=== PATIENT | female | born 1955 | race Caucasian/White ===

== ENCOUNTER 2017-06-17 14:08 | Emergency (ER) | payer BC ==
[2017-06-17 14:38] VITALS: BP 129/69
--- NOTE | 2017-06-17 15:05 | ER Document Report ---
ED General - General Chief Complaint: Toothache Stated Complaint: TOOTH PAIN Time Seen by Provider: 06/17/17 14:57 Mode of Arrival: Ambulatory Information source: Patient Notes: 62-year-old female history of extremely poor dentition presents with complaints of dental pain. Patient notes tooth #25 or 26 are bothering her she denies any fevers or chills denies any swelling of the face TRAVEL OUTSIDE OF THE [place] IN LAST 30 DAYS: No - HPI Onset: Just prior to arrival Onset/Duration: Persistent Quality of pain: Achy Severity: Mild Pain Level: 1 Associated symptoms: Other Exacerbated by: Denies Relieved by: Denies Similar symptoms previously: No Recently seen / treated by doctor: No - Related Data Allergies/Adverse Reactions: No Known Allergies Allergy (Verified 06/17/17 14:09) Past Medical History - Social History Smoking Status: Never Smoker Cigarette use (# per day): No Chew tobacco use (# tins/day): No Smoking Education Provided: No Family History: Reviewed & Not Pertinent Review of Systems - Review of Systems Notes: REVIEW OF SYSTEMS: CONSTITUTIONAL : Denies fever, chills, or sweats. Denies recent illness. EENT: Admits to dental pain CARDIOVASCULAR: Denies chest pain. Denies palpitations or racing or irregular heart beat. Denies ankle edema. RESPIRATORY: Denies cough, cold, or chest congestion. Denies shortness of breath, difficulty breathing, or wheezing. GASTROINTESTINAL: Denies abdominal pain or distention. Denies nausea, vomiting , or diarrhea. Denies blood in vomitus, stools, or per rectum. Denies black, tarry stools. Denies constipation. GENITOURINARY: Denies difficulty urinating, painful urination, burning, frequency, blood in urine, or discharge. FEMALE GENITOURINARY: Denies vaginal bleeding, heavy or abnormal periods, irregular periods. Denies vaginal discharge or odor. MUSCULOSKELETAL: Denies back or neck pain or stiffness. Denies joint pain or swelling. SKIN: Denies rash, lesions or sores. HEMATOLOGIC : Denies easy bruising or bleeding. LYMPHATIC: Denies swollen, enlarged glands. NEUROLOGICAL: Denies confusion or altered mental status. Denies passing out or loss of consciousness. Denies dizziness or lightheadedness. Denies headache. Denies weakness or paralysis or loss of use of either side. Denies problems with gait or speech. Denies sensory loss, numbness, or tingling. Denies seizures. PSYCHIATRIC: Denies anxiety or stress. Denies depression, suicidal ideation, or homicidal ideation. ALL OTHER SYSTEMS REVIEWED AND NEGATIVE. PHYSICAL EXAMINATION: GENERAL: Well-appearing, well-nourished and in no acute distress. HEAD: Atraumatic, normocephalic. EYES: Pupils equal round extraocular movements intact, conjunctiva are normal. ENT: Patient is pretty edentulous, she has 4 teeth, tooth #2526 noted to have caries fractured tender NECK: Normal range of motion LUNGS: No respiratory distress Musculoskeletal: Normal range of motion NEUROLOGICAL: Normal speech, normal gait. PSYCH: Normal mood, normal affect. SKIN: Warm, Dry, normal turgor, no rashes or lesions noted. Physical Exam - Vital signs Vitals: Temp Pulse Resp BP Pulse Ox 98.4 F 64 16 129/69 H 96 06/17/17 14:37 06/17/17 14:37 06/17/17 14:37 06/17/17 14:37 06/17/17 14:37 Course - Re-evaluation Re-evalutation: 06/17/17 15:17 Patient defers on a nerve block, I will start on antibiotics give her pain control and her follow-up with her own dentist next week per previous appointment After performing a Medical Screening Examination, I estimate there is LOW risk for a DEEP SPACE INFECTION (e.g., ROJELIO'S ANGINA OR RETROPHARYNGEAL ABSCESS), MENINGITIS, INTRACRANIAL HEMORRHAGE, or AIRWAY COMPROMISE, thus I consider the discharge disposition reasonable. Also, there is no evidence or peritonitis, sepsis, or toxicity. I have reevaluated this patient multiple times and no significant life threatening changes are noted. The patient and I have discussed the diagnosis and risks, and we agree with discharging home with close follow-up with the understanding that symptoms and presentations can change. We also discussed returning to the Emergency Department immediately if new or worsening symptoms occur. We have discussed the symptoms which are most concerning (e.g., changing or worsening pain, trouble swallowing or breathing, neck stiffness or fever) that necessitate immediate return. - Vital Signs Vital signs: Temp Pulse Resp BP Pulse Ox 98.4 F 64 16 129/69 H 96 06/17/17 14:37 06/17/17 14:37 06/17/17 14:37 06/17/17 14:37 06/17/17 14:37 Discharge - Discharge Clinical Impression: Pain due to dental caries Condition: Stable Disposition: HOME, SELF-CARE Instructions: [facility], Toothache ([facility]) Prescriptions: Hydrocodone/Acetaminophen [[place] 5-325 mg Tablet] 1 tab PO Q6 #10 tablet Penicillin V Potassium [Penicillin Vk 250 mg Tablet] 500 mg PO Q6 10 Days #40 tablet
== END 2017-06-17 15:10 | disposition home or self-care (01) ==
LOC: ER 14:08
DX: K02.9 Dental caries, unspecified (principal); K08.89 Other specified disorders of teeth and supporting structures
CPT/HCPCS: 99282

== ENCOUNTER 2019-01-14 11:36 | Emergency (ER) | payer BC ==
--- NOTE | 2019-01-14 13:25 | ER Document Report ---
HPI - HPI Patient complains to provider of: left hip pain Time Seen by Provider: 01/14/19 12:41 Onset: Other - 2 DAYS AGO Pain Level: 3 Context: Patient presents to the emergency department with complaints of left hip pain. Patient reports she was staining her deck standing on a stool 2 days ago. She reports the stool tilted and she corky her hip. She denies falling. She reports they did not hit at first but the pain is now increasing to the left hip. She reports it hurts when she stands or sits or growths up to stand or going down to sit. She reports that she stands still it does not hurt as much. No other complaints such as fever and vomiting. Patient denies past medical history of injury to the hip. Associated Symptoms: None Exacerbated by: Sitting, Movement Relieved by: Standing Similar symptoms previously: No Recently seen / treated by doctor: No - CONSTITUTIONAL Constitutional: DENIES: Fever, Chills - REPRODUCTIVE Reproductive: DENIES: : - MUSCULOSKELETAL Musculoskeletal: REPORTS: Extremity pain - L hip Past Medical History - General Information source: Patient - Social History Smoking Status: Current Every Day Smoker Cigarette use (# per day): Yes Frequency of alcohol use: None Drug Abuse: None Family History: Reviewed & Not Pertinent Patient has suicidal ideation: No Patient has homicidal ideation: No - Past Medical History Cardiac Medical History: Reports: Hx Hypercholesterolemia Renal/ Medical History: Denies: Hx Peritoneal Dialysis Past Surgical History: Reports: Other - NECK AND CHIN SURGERY FOR TUMOR Vertical Provider Document - CONSTITUTIONAL Agree With Documented VS: Yes Exam Limitations: No Limitations General Appearance: WD/WN, Mild Distress - Winces when standing up - INFECTION CONTROL TRAVEL OUTSIDE OF THE [place] IN LAST 30 DAYS: No - HEENT HEENT: Atraumatic, Normocephalic - NECK Neck: Normal Inspection, Supple - RESPIRATORY Respiratory: Breath Sounds Normal, No Respiratory Distress - CARDIOVASCULAR Cardiovascular: Regular Rate - BACK Back: Normal Inspection - MUSCULOSKELETAL/EXTREMETIES Musculoskeletal/Extremeties: Tender - left hip ttp, no obvious deformity, no ecchymosis no erythema no swelling no warmth. Patient is able to flex and extend left leg with some discomfort to the hip joint. Good pedal pulse - NEURO Level of Consciousness: Awake, Alert, Appropriate Motor/Sensory: No Motor Deficit - DERM Integumentary: Warm, Dry Adult Front & Back Diagram: 1 - Patient reports pain in the left joint area. Course - Re-evaluation Re-evalutation: 01/14/19 14:19 63-year-old female presents with left hip pain. Denies trauma. Reports she was standing on a stool pain in her deck when the stool kind of tilted and she corky her hip. Patient reports pain since that time which was 2 days ago. Taking ibuprofen without relief of pain. Patient complains of pain with movement of standing to sitting or sitting to standing. She reports it feels better when she stands there. Hip x-ray is negative. No obvious signs of injuries no erythema no swelling no warmth. Patient was instructed on muscle relaxer. Patient also instructed to follow-up with primary care orthopedics for continued pain. She was encouraged to the place ice packs on the hip. She verbalized understanding to all instructions. Hip X-Ray 01/14/19 13:19 IMPRESSION: NEGATIVE STUDY OF THE LEFT HIP AND PELVIS. NO RADIOGRAPHIC EVIDENCE OF ACUTE INJURY. - Vital Signs Vital signs: Temp Pulse Resp BP Pulse Ox 97.8 F 70 16 108/63 98 01/14/19 12:35 01/14/19 12:35 01/14/19 12:35 01/14/19 12:35 01/14/19 12:35 - Diagnostic Test Radiology reviewed: Image reviewed, Reports reviewed Discharge - Discharge Clinical Impression: Left hip pain Condition: Stable Disposition: HOME, SELF-CARE Instructions: Family Physicians / Practices, Use of [id number]-Pbb-[id number] Ibuprofen ([facility]), Ice Packs ([facility]), Muscle Relaxers ([facility]) Additional Instructions: *You have been evaluated for left hip pain *Take ibuprofen as indicated for the pain *Rest/Ice packs to your hip Follow-up with your primary care provider or orthopedics within one week for evaluation-call for an appointment *Take medication as prescribed *Return to ED for worsening condition, changes, needs Prescriptions: Cyclobenzaprine HCl [Flexeril 5 mg Tablet] 5 mg PO TID #15 tablet Forms: Smoking Cessation Education, Return to Work
--- NOTE | 2019-01-14 14:13 | RADIOLOGY REPORT (SQ) ---
EXAM DESCRIPTION: HIP LEFT AP/LATERAL COMPLETED DATE/TIME: 01/14/2019 1:57 pm REASON FOR STUDY: pain COMPARISON: None. NUMBER OF VIEWS: Two views. TECHNIQUE: AP pelvis and additional frog-leg view of the left hip. LIMITATIONS: None. FINDINGS: MINERALIZATION: Normal. LEFT HIP: No fracture or dislocation. No worrisome bone lesions. RIGHT HIP: No fracture or dislocation. No worrisome bone lesions. PUBIS AND ISCHIUM: No fracture. PELVIS: No fracture. SACRUM: No fracture or dislocation. No worrisome bone lesions. LOWER LUMBAR SPINE: No fracture or dislocation. No worrisome bone lesions. No significant disc disea se. SOFT TISSUES: No findings. OTHER: No other significant finding. IMPRESSION: NEGATIVE STUDY OF THE LEFT HIP AND PELVIS. NO RADIOGRAPHIC EVIDENCE OF ACUTE INJURY. TECHNICAL DOCUMENTATION: JOB ID: [id number] [employer]- All Rights Reserved Reading location - IP/workstation name: [email or web address]
[2019-01-14 14:39] VITALS: BP 127/60
== END 2019-01-14 14:42 | disposition home or self-care (01) ==
LOC: ER 11:36
DX: M25.552 Pain in left hip (principal); F17.210 Nicotine dependence, cigarettes, uncomplicated
CPT/HCPCS: 99283